=== PATIENT | male | born 1950 | race Caucasian/White ===

== ENCOUNTER 2019-12-12 16:35 | Emergency (ER) | payer MEDICARE ==
--- NOTE | 2019-12-12 17:38 | ER Document Report ---
ED Medical Screen (RME) - General Chief Complaint: General Weakness Stated Complaint: CONFUSION,LIGHTHEADED Time Seen by Provider: 12/12/19 17:28 Notes: HPI: 69-year-old male with history of hypertension, type 2 diabetes, elevated cholesterol presenting to the emergency department for evaluation of 3 to 4 months of feeling "out of it" and lethargic. [facility] but his sugars will range anywhere from 250-450. Patient states that he was changed to Amaryl last week, was started on 2 mg, increased to 4 mg today. He did take the medication today. Denies chest pain shortness of breath. Denies abdominal pain nausea vomiting. Patient does report significantly increased thirst and increased frequency of urination but no fevers or cough PHYSICAL EXAMINATION: Patient is alert and oriented answering all questions appropriately. Clinically denies headache, is ambulatory, moves all extremities equally. Lung sounds are clear to auscultation with regular rate and rhythm. Accu-Chek is 242. I have greeted and performed a rapid initial assessment of this patient. A comprehensive ED assessment and evaluation of the patient, analysis of test results and completion of medical decision making process will be conducted by an additional ED providers. - Related Data Allergies/Adverse Reactions: No Known Allergies Allergy (Verified 12/12/19 17:27) Home Medications: lisinopril Physical Exam - Vital signs Vitals: Temp Pulse Resp BP Pulse Ox 98.7 F 82 16 134/69 H 95 12/12/19 17:11 12/12/19 17:11 12/12/19 17:11 12/12/19 17:11 12/12/19 17:11 Course - Vital Signs Vital signs: Temp Pulse Resp BP Pulse Ox 98.7 F 82 16 134/69 H 95 12/12/19 17:11 12/12/19 17:11 12/12/19 17:11 12/12/19 17:11 12/12/19 17:11
[2019-12-12 18:12] LABS: VENOUS BLOOD BASE EXCESS 1.8 mmol/L; VENOUS BLOOD HCO3 27.2 mmol/L (20-32); VENOUS BLOOD PCO2 45.5 mmHg (35-63); VENOUS BLOOD PH 7.4 (7.30-7.42)
--- NOTE | 2019-12-12 18:21 | RADIOLOGY REPORT (SQ) ---
EXAM DESCRIPTION: CHEST 2 VIEWS IMAGES COMPLETED DATE/TIME: 12/12/2019 6:08 pm REASON FOR STUDY: AMS COMPARISON: None. EXAM PARAMETERS: NUMBER OF VIEWS: two views TECHNIQUE: Digital Frontal and Lateral radiographic views of the chest acquired. RADIATION DOSE: NA LIMITATIONS: none FINDINGS: LUNGS AND PLEURA: No opacities, masses or pneumothorax. No pleural effusion. MEDIASTINUM AND HILAR STRUCTURES: No masses or contour abnormalities. HEART AND VASCULAR STRUCTURES: Heart normal size. No evidence for failure. BONES: No acute findings. HARDWARE: None in the chest. OTHER: No other significant finding. IMPRESSION: NO ACUTE RADIOGRAPHIC FINDING IN THE CHEST. TECHNICAL DOCUMENTATION: JOB ID: [id number] 2010 [employer]- All Rights Reserved Reading location - IP/workstation name: [email or web address]
[2019-12-12 18:25] LABS: APPEARANCE,URINE CLEAR; BILIRUBIN,URINE NEGATIVE (NEGATIVE); COLOR,URINE YELLOW; GLUCOSE, URINE >=500 mg/dL (NEGATIVE); KETONES,URINE NEGATIVE (NEGATIVE); LEUKOCYTE ESTERASE,URINE NEGATIVE (NEGATIVE); NITRITE,URINE NEGATIVE (NEGATIVE); PROTEIN,URINE NEGATIVE (NEGATIVE); URINE SPECIFIC GRAVITY 1.031; UROBILINOGEN,URINE NEGATIVE mg/dL (<2.0)
[2019-12-12 18:26] LABS: ABSOLUTE BASOPHILS # (AUTO) 0.1 10^3/uL (0.0-0.2); ABSOLUTE EOSINOPHILS # (AUTO) 0.1 10^3/uL (0.0-0.6); ABSOLUTE LYMPHOCYTES (AUTO) 2.7 10^3/uL (0.5-4.7); ABSOLUTE MONOCYTES (AUTO) 0.7 10^3/uL (0.1-1.4); ABSOLUTE NEUT (AUTO) 4.5 10^3/uL (1.7-8.2); BASOPHILS % (AUTO) 0.7 % (0-2); HEMATOCRIT 43.8 % (37.9-51.0); HEMOGLOBIN 15.7 g/dL (13.5-17.0); LYMPHOCYTES % (AUTO) 33.7 % (13-45); MEAN CORPUSCULAR HEMOGLOBIN 30.7 pg (27.0-33.4); MEAN CORPUSCULAR HGB CONC 35.9 g/dL (32.0-36.0); MEAN CORPUSCULAR VOLUME 85 fl (80-97); MONOCYTES % (AUTO) 8.2 % (3-13); PLATELET COUNT 221 10^3/uL (150-450); RED BLOOD COUNT 5.12 10^6/uL (4.35-5.55); RED CELL DISTRIBUTION WIDTH 13.2 % (11.5-14.0); SEGMENTED NEUTROPHILS % (AUTO) 56.4 % (42-78); TOTAL CELLS COUNTED % (AUTO) 100 %; WHITE BLOOD COUNT 7.9 10^3/uL (4.0-10.5)
[2019-12-12 18:35] LABS: ALBUMIN 4.1 g/dL (3.5-5.0); ALKALINE PHOSPHATASE 85 U/L (38-126); ANION GAP 8 (5-19); ASPARTATE AMINO TRANSFERASE 25 U/L (17-59); BILIRUBIN,TOTAL 0.5 mg/dL (0.2-1.3); BLOOD UREA NITROGEN 21 mg/dL (7-20); CALCIUM 9.3 mg/dL (8.4-10.2); CARBON DIOXIDE 26 mmol/L (22-30); CHLORIDE 102 mmol/L (98-107); GLUCOSE 258 mg/dL (75-110); POTASSIUM 4.4 mmol/L (3.6-5.0); TOTAL PROTEIN 7.1 g/dL (6.3-8.2)
[2019-12-12] MEDS ORDERED: NORMAL SALINE 1000 ML 1,000 ML IV ONE (20:21)
--- NOTE | 2019-12-12 20:51 | RADIOLOGY REPORT (SQ) ---
INDICATION: dizziness. COMPARISON: None CORRELATION: None TECHNIQUE: Noncontrast spiral axial CT images were obtained from the skull base to vertex. This exam was performed according to our departmental dose-optimization program, which includes automated exposure control, adjustment of the mA and/or kV according to patient size and/or use of iterative reconstruction techniques. FINDINGS: There is no evidence of acute intracranial hemorrhage, midline shift, mass effect or mass lesion. Contreras-white differentiation is normal. There is no evidence of acute large territory infarct. Age-related involutional changes are identified. Presumed old small vessel ischemic changes are seen predominantly in a periventricular distribution.. 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 The visualized paranasal sinuses are grossly clear. The orbits and eyeballs are unremarkable. The mastoid air cells are clear. Skull base and calvarium appear intact. IMPRESSION: No acute intracranial process is identified. Age-related involutional changes are identified. Presumed old small vessel ischemic changes are seen predominantly in a periventricular distribution. The cause of the patient's dizziness is not identified on this examination.
--- NOTE | 2019-12-12 22:04 | EKG REPORT ---
SEVERITY:- BORDERLINE ECG - SINUS RHYTHM LEFT AXIS DEVIATION BORDERLINE R WAVE PROGRESSION, ANTERIOR LEADS : Confirmed by: Agatha Emanuel MD 12-Dec-2019 22:03:26
--- NOTE | 2019-12-12 22:06 | ER Document Report ---
ED General - General Chief Complaint: General Weakness Stated Complaint: CONFUSION,LIGHTHEADED Time Seen by Provider: 12/12/19 17:28 Notes: 69-year-old male presents emergency department complaining of uncontrolled blood sugars for the past 4 months. States that his blood sugar medication was changed back in June and July, since then he has been having increased thirst, increased urinary frequency and increased fatigue. States that when his blood sugar is high his brain gets really foggy and we changes from a later room to a dark room he sometimes has flashes of light in his vision. Denies any loss of consciousness, denies any spinning sensation. States that the only change in his vision he has had was a cut in the visual field of his right eye several months ago which is already been seen by ophthalmology and he has been diagnosed with a floater. Patient is scheduled of surgery for his cataracts coming up in the next 1 to 2 months. States that he ran out of his blood sugar medications approximately 3 weeks ago, he went up to a maximum of 457, states that he has now been started on glimepiride and recently increased from 2 mg a day to 4 mg a day by his primary care PA Bao Parisa Howard. States that he is concerned because his blood sugar is still in the 250s despite taking this. Has not seen an ornamental plasterer helper. - Related Data Allergies/Adverse Reactions: No Known Allergies Allergy (Verified 12/12/19 17:27) Home Medications: lisinopril Past Medical History - General Information source: Patient - Social History Smoking Status: Current Some Day Smoker - Smokes cigars. Chew tobacco use (# tins/day): No Frequency of alcohol use: None - Quit drinking in the early . Drug Abuse: None Family History: DM, Hypertension Endocrine Medical History: Reports: Hx Diabetes Mellitus Type 2 Review of Systems - Review of Systems Constitutional: No symptoms reported EENT: See HPI Cardiovascular: No symptoms reported. denies: Heart racing, Orthopnea, Dyspnea, Syncope Respiratory: No symptoms reported Gastrointestinal: No symptoms reported. denies: Diarrhea, Nausea, Vomiting Genitourinary: See HPI, Frequency. denies: Hematuria, Incontinence, Pain Musculoskeletal: No symptoms reported Neurological/Psychological: See HPI, Confusion - Feels foggy. -: Yes All other systems reviewed and negative Physical Exam - Vital signs Vitals: Temp Pulse Resp BP Pulse Ox 98.7 F 82 16 134/69 H 95 12/12/19 17:11 12/12/19 17:11 12/12/19 17:11 12/12/19 17:11 12/12/19 17:11 Interpretation: Normal - Notes Notes: GENERAL: Alert, interacts well. No acute distress. HEAD: Normocephalic, atraumatic EYES: Pupils equal, round and reactive to light, extraocular movements intact. ENT: Oral mucosa moist, tongue midline. NECK: Full range of motion, supple, trachea midline. LUNGS: Clear to auscultation bilaterally, no wheezes, rales or rhonchi, no respiratory distress. HEART: Regular rate and rhythm, no murmurs, gallops, rubs. ABDOMEN: Soft, nontender, nondistended, bowel sounds present in all 4 quadrants. EXTREMITIES: Moves all 4 extremities spontaneously, no edema, radial and dorsalis pedis pulses 2/4 bilaterally. No cyanosis. Creased hair growth on his bilateral lower extremities that he states is not a change, states he has never had much hair on his legs. NEUROLOGICAL: Alert and oriented x3, normal speech, biceps and patellar DTRs 2+ bilaterally. PSYCH: Normal mood, normal affect. SKIN: Warm, Dry, normal turgor, no rashes or lesions noted. Course - Re-evaluation Re-evalutation: 12/12/19 22:04 CBC unremarkable, venous blood gas unremarkable, CMP shows elevated glucose of 258, mild pseudohyponatremia, troponin normal, LFTs normal, urinalysis shows glucose but no ketones. Chest X-Ray 12/12/19 17:35 IMPRESSION: NO ACUTE RADIOGRAPHIC FINDING IN THE CHEST. Head CT 12/12/19 20:20 IMPRESSION: No acute intracranial process is identified. Age-related involutional changes are identified. Presumed old small vessel ischemic changes are seen predominantly in a periventricular distribution. The cause of the patient's dizziness is not identified on this examination. Discussed with patient that he does have signs of an old stroke. Patient is unaware that he is ever had a stroke. Discussed with the patient that even if his old strokes were "silent" they still put him at higher risk for a future stroke. Strongly recommended that patient requests referral to an ornamental plasterer helper as his primary care provider has been managing his diabetes but it remains elevated. Discussed that I do not find any acute or emergent conditions this evening that I can treat in the emergency department. Discussed signs and symptoms that should prompt him to return. Also discussed dietary changes, increasing exercise and drinking more water as other methods of controlling his blood sugar until he is able to follow-up with primary and with endocrinology. Patient is agreeable to all of these plans. Will be discharged home. - Vital Signs Vital signs: Temp Pulse Resp BP Pulse Ox 98.7 F 71 16 122/66 95 12/12/19 17:11 12/12/19 21:01 12/12/19 21:01 12/12/19 21:01 12/12/19 21:01 - Laboratory Result Diagrams: 12/12/19 17:50 12/12/19 17:50 Laboratory results interpreted by me: 12/12/19 12/12/19 12/12/19 17:34 17:50 17:50 Sodium 135.8 L BUN 21 H Glucose 258 H POC Glucose 242 H Urine Glucose (UA) >=500 H Discharge - Discharge Clinical Impression: Uncontrolled diabetes mellitus with hyperglycemia, without long-term current use of insulin Condition: Stable Disposition: HOME, SELF-CARE Additional Instructions: I would strongly recommend you request a referral to endocrinology from your primary care provider. It sounds like they have been doing an excellent job attempting to manage her diabetes however it does remain uncontrolled after 6 months. You will likely benefit from consultation with a medical collections specialist. Should your blood sugars are consistently running in the 400s again, should you develop confusion where you do not know where you are, you have difficulty walking or you have difficulty talking please return to the emergency department immediately. We discussed several strategies that she can use to help control your blood sugar at home in addition to dietary changes. These include drinking plenty of water and also exercising. Remember 10 minutes of exercise 3 times a day is just as valuable as 30 minutes of exercise all at once. Please also discuss with your primary care provider that your CAT scan shows signs of old strokes. There may be further work-up that they wish to do related to these old strokes. Referrals: PARISA HOWARD PA [Primary Care Provider] - Follow up as needed
[2019-12-12 22:23] VITALS: BP 123/84
== END 2019-12-12 22:23 | disposition home or self-care (01) ==
LOC: ER 16:35
DX: E11.65 Type 2 diabetes mellitus with hyperglycemia (principal); R53.1 Weakness; F17.229 Nicotine dependence, chewing tobacco, with unspecified nicotine-induced disorders; I10 Essential (primary) hypertension; E78.00 Pure hypercholesterolemia, unspecified
CPT/HCPCS: 93005; 99285; 96360; 36415; 82962; 83735; 84443; 85025; 80053; 81001; 84484; 82803; 71046; 70450; 93010; J7030